=== PATIENT | female | born 1975 | race Caucasian/White ===

== ENCOUNTER 2017-10-23 19:57 | Emergency (ER) | payer BC ==
[~2017-10-23] VITALS: Ht 165.1 cm; Wt 113.4 kg
[~2017-10-23 19:57] MED LIST: ACETAMINOPHEN-1 EAC1 PO; ANTIVERT25 MG PO; APAP500 PO; BUSPIRONE HCL10 MG PO; CYMBALTA30 MG PO; CYMBALTA60 MG; CYMBALTA60 MG PO; ELIMITE60 GM TP; IBUPROFEN 200200 M1; IBUPROFEN 800800 M1 PO; PROZAC20 MG PO; ROBAXIN500 MG PO; VICOPROFEN 2001 EACH PO; XANAX 0.5 MG0.5 MG PO; ZOFRAN4 MG PO
[2017-10-23] MEDS ORDERED: WELLBUTRIN 100100 MG PO (20:09)
[2017-10-23] MEDS ORDERED: BUTALB-APAP-CA1 EACH PO (21:12)
[2017-10-23 21:46] VITALS: BP 144/79
== END 2017-10-23 21:42 | disposition home or self-care (01) ==
LOC: M.ERS 19:57
DX: R51 Headache (principal); F10.99 Alcohol use, unspecified with unspecified alcohol-induced disorder

== ENCOUNTER 2018-02-01 21:30 | Emergency (ER) | payer BC ==
[~2018-02-01] VITALS: Ht 165.1 cm; Wt 115.7 kg
[~2018-02-01 21:30] MED LIST changes: +BUTALB-APAP-CA1 EACH PO; +WELLBUTRIN 100100 MG PO
[2018-02-01] MEDS ORDERED: TOPAMAX 25 MG T25 M1 PO (21:56)
[2018-02-01 22:32] LABS: URINE BILIRUBIN NEGATIVE (Negative); URINE BLOOD 1+ (Negative); URINE CLARITY CLEAR; URINE COLOR YELLOW; URINE GLUCOSE-RANDOM NEGATIVE (Negative); URINE KETONES NEGATIVE (Negative); URINE LEUKOCYTES-REFLEX NEGATIVE (Negative); URINE NITRITE-REFLEX NEGATIVE (Negative); URINE PROTEIN NEGATIVE (Negative); URINE SPECIFIC GRAVITY 1.015 (1.005-1.030); URINE UROBILINOGEN 0.2 E.U./dl (0.2-1.0)
[2018-02-01 22:50] LABS: BACTERIA-REFLEX None Seen /HPF (None Seen); CASTS None Seen /LPF (None Seen); MUCUS None Seen strn/LPF (None Seen); SQUAMOUS 0-3 Few /LPF (0-3); URINE RBC 3-10 Few /HPF (0-2); URINE WBC-REFLEX None Seen /HPF (0-5)
[2018-02-01 22:51] LABS: AMORPHOUS PHOSPHATES Few /LPF (None Seen)
[2018-02-01 23:28] LABS: ABSOLUTE EOSINOPHILS 0.2 thou/uL (0.0-0.7); ABSOLUTE LYMPHOCYTES 1.8 thou/uL (0.8-5.3); ABSOLUTE MONOCYTES 0.6 thou/uL (0.0-1.2); BASOPHILS 0.5 %; EOSINOPHILS 3.1 %; HEMATOCRIT 34.7 % (37.0-47.0); HEMOGLOBIN 11.2 gm/dL (12.0-15.0); LYMPHOCYTES 23.9 %; MCH 26.9 pg (26.0-34.0); MCHC 32.3 g/dL (28.0-37.0); MCV 83.1 fL (80.0-100.0); MPV 9.3 fl. (7.2-11.1); NUCLEATED RBCS 0 /100WBC; PLATELET COUNT* 244 thou/uL (150-400); POLYS 64.5 %; RBC 4.18 mil/uL (4.20-5.00); RDW-CV 15.9 % (10.5-14.5); WBC 7.7 thou/uL (4.0-11.0)
[2018-02-01 23:40] LABS: CALCIUM 8.8 mg/dL (8.5-10.1); POTASSIUM 3.5 mmol/L (3.5-5.1)
[2018-02-01 23:45] LABS: ALBUMIN 3.6 g/dL (3.4-5.0); TOTAL BILIRUBIN 0.2 mg/dL (<0.1-1.0); TOTAL PROTEIN 6.7 g/dL (6.4-8.2)
[2018-02-01] MEDS ORDERED: FLAGYL500 MG PO (23:53)
[2018-02-02 00:18] VITALS: BP 150/102
== END 2018-02-02 00:21 | disposition home or self-care (01) ==
LOC: M.ERS 21:30
PROVIDERS: Nurse Practitioner Family
DX: N76.0 Acute vaginitis (principal); B96.89 Other specified bacterial agents as the cause of diseases classified elsewhere; R10.2 Pelvic and perineal pain

== ENCOUNTER 2019-11-02 20:09 | Emergency (ER) | payer BC ==
[~2019-11-02] VITALS: Ht 165.1 cm; Wt 120.2 kg
[~2019-11-02 20:09] MED LIST changes: +FLAGYL500 MG PO; +TOPAMAX 25 MG T25 M1 PO
[2019-11-02 20:54] LABS: INFLUENZA A ANTIGEN Negative (Negative); INFLUENZA B ANTIGEN Negative (Negative)
[2019-11-02] MEDS ORDERED: PROAIR HFA8.5 GM INH (21:34)
[2019-11-02] MEDS ORDERED: PREDNISONE50 MG PO (21:34)
[2019-11-02] MEDS ORDERED: TAMIFLU75 MG PO (21:34)
[2019-11-02] MEDS ORDERED: ALBUTEROL2.5 MG/31 INH (21:43)
[2019-11-02 21:58] VITALS: BP 155/89
--- NOTE | 2019-11-03 11:06 | EKG ---
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1975 Requested By: Khushi Velazquez Order Number: [id number] Reading MD: Ricky Ahuja Measurements Intervals [place] Rate: 104 P: 35 VT: 155 QRS: -53 QRSD: 93 T: 28 QT: 354 QTc: 466 Interpretive Statements Sinus tachycardia Left anterior fascicular block Borderline repolarization abnormality No previous ECG available for comparison Electronically Signed On 11-03-2019 11:06:13 [employer] by Ricky Ahuja [email or web address] <ELECTRONICALLY SIGNED> By: Ricky Ahuja MD, [facility] 11/03/19 1106 21 21 Ricky Ahuja MD, FACC /EPI
== END 2019-11-02 21:58 | disposition home or self-care (01) ==
LOC: M.ERS 20:09
PROVIDERS: Emergency Medicine
DX: J11.1 Influenza due to unidentified influenza virus with other respiratory manifestations (principal); Z98.51 Tubal ligation status

== ENCOUNTER 2020-09-04 00:08 | Emergency (ER) | payer BC ==
[~2020-09-04] VITALS: Ht 165.1 cm; Wt 122.5 kg
[~2020-09-04 00:08] MED LIST changes: +ALBUTEROL2.5 MG/31 INH; +PREDNISONE50 MG PO; +PROAIR HFA8.5 GM INH; +TAMIFLU75 MG PO
[2020-09-04 00:36] LABS: ABSOLUTE BASOPHILS 0.1 thou/uL (0.0-0.2); ABSOLUTE EOSINOPHILS 0.3 thou/uL (0.0-0.7); ABSOLUTE LYMPHOCYTES 2.3 thou/uL (0.8-5.3); ABSOLUTE MONOCYTES 0.4 thou/uL (0.0-1.2); ABSOLUTE NEUTROPHILS 4.2 thou/uL (1.6-8.1); BASOPHILS 0.8 %; EOSINOPHILS 3.6 %; HEMATOCRIT 38.2 % (37.0-47.0); HEMOGLOBIN 12.2 gm/dL (12.0-15.0); LYMPHOCYTES 31.6 %; MCV 81.2 fL (80.0-100.0); MONOCYTES 5.1 %; MPV 9.2 fl. (7.2-11.1); NUCLEATED RBCS 0 /100WBC; PLATELET COUNT* 264 thou/uL (150-400); POLYS 58.9 %; RDW-CV 15.3 % (10.5-14.5); WBC 7.2 thou/uL (4.0-11.0)
[2020-09-04 00:40] LABS: CALCIUM 8.7 mg/dL (8.5-10.1); CREATININE 0.7 mg/dL (0.6-1.3); POTASSIUM 3.8 mmol/L (3.5-5.1)
[2020-09-04 00:44] LABS: TOTAL BILIRUBIN 0.2 mg/dL (<0.1-1.0); TOTAL PROTEIN 7.9 g/dL (6.4-8.2)
[2020-09-04 00:49] LABS: URINE BILIRUBIN NEGATIVE (Negative); URINE BLOOD 1+ (Negative); URINE CLARITY CLEAR; URINE COLOR STRAW; URINE GLUCOSE-RANDOM NEGATIVE (Negative); URINE KETONES NEGATIVE (Negative); URINE LEUKOCYTES-REFLEX NEGATIVE (Negative); URINE NITRITE-REFLEX NEGATIVE (Negative); URINE PROTEIN NEGATIVE (Negative); URINE SPECIFIC GRAVITY <= 1.005 (1.005-1.030); URINE UROBILINOGEN 0.2 E.U./dl (0.2-1.0)
[2020-09-04 00:53] LABS: AMP/METHAMP Negative (Negative); BARBITURATES Negative (Negative); BENZODIAZEPINES Negative (Negative); COCAINE Negative (Negative); METHADONE Negative (Negative); OPIATES Negative (Negative); PCP Negative (Negative); THC Negative (Negative)
[2020-09-04 00:58] LABS: ALCOHOL 178 mg/dL (<10); SALICYLATE < 2.8 mg/dL (2.8-20.0)
[2020-09-04 01:01] LABS: ACETAMINOPHEN < 2 ug/mL (10-30)
[2020-09-04 01:21] LABS: CASTS None Seen /LPF (None Seen); SQUAMOUS >10 Many /LPF (0-3)
[2020-09-04 01:22] LABS: CRYSTALS None Seen /LPF (None Seen); URINE RBC 0-2 Rare /HPF (0-2); URINE WBC-REFLEX 0-5 Rare /HPF (0-5)
[2020-09-04] MEDS ORDERED: LEXAPRO5 MG PO (03:54)
[2020-09-04 04:02] VITALS: BP 159/88
== END 2020-09-04 04:08 | disposition home or self-care (01) ==
LOC: M.ERS 00:08
PROVIDERS: Emergency Medicine
DX: F32.9 Major depressive disorder, single episode, unspecified (principal); Z98.51 Tubal ligation status; Z98.891 History of uterine scar from previous surgery; Z79.899 Other long term (current) drug therapy

== ENCOUNTER 2021-05-15 17:43 | Emergency (ER) | payer OTHER ==
[~2021-05-15] VITALS: Ht 165.1 cm; Wt 104.3 kg
[~2021-05-15 17:43] MED LIST changes: +LEXAPRO5 MG PO
[2021-05-15] MEDS ORDERED: WELCHOL 625 MG625 M1 PO (18:01)
[2021-05-15 19:01] LABS: ABSOLUTE LYMPHOCYTES 0.7 thou/uL (0.8-5.3); ABSOLUTE MONOCYTES 0.3 thou/uL (0.0-1.2); ABSOLUTE NEUTROPHILS 3.4 thou/uL (1.6-8.1); BASOPHILS 1.1 %; EOSINOPHILS 0.8 %; HEMOGLOBIN 11.9 gm/dL (12.0-15.0); LYMPHOCYTES 15.7 %; MCH 24.8 pg (26.0-34.0); MCHC 32.1 g/dL (28.0-37.0); MCV 77.4 fL (80.0-100.0); MONOCYTES 5.7 %; MPV 9.9 fl. (7.2-11.1); NUCLEATED RBCS 0 /100WBC; PLATELET COUNT* 147 thou/uL (150-400); POLYS 76.7 %; RBC 4.78 mil/uL (4.20-5.00); RDW-CV 15.1 % (10.5-14.5); WBC 4.4 thou/uL (4.0-11.0)
[2021-05-15 19:10] LABS: CALCIUM 8.5 mg/dL (8.5-10.1); CREATININE 0.8 mg/dL (0.6-1.3); POTASSIUM 4.6 mmol/L (3.5-5.1)
[2021-05-15 19:23] LABS: ALBUMIN 3.6 g/dL (3.4-5.0); TOTAL BILIRUBIN 0.5 mg/dL (<0.1-1.0); TOTAL PROTEIN 7.7 g/dL (6.4-8.2)
[2021-05-15] MEDS ORDERED: FLEXERIL PO (20:50)
[2021-05-15] MEDS ORDERED: TESSALON PERLE100 MG PO (20:50)
[2021-05-15] MEDS ORDERED: ZOFRAN ODT4 MG PO (20:50)
[2021-05-15 21:17] VITALS: BP 114/80
--- NOTE | 2021-05-16 09:31 | EKG ---
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1975 Requested By: Dinorah Beverly Order Number: [id number] MD: Nabeel Cain Measurements Intervals [place] Rate: 108 P: 25 MS: 143 QRS: -65 QRSD: 88 T: 26 QT: 370 QTc: 496 Interpretive Statements Sinus tachycardia Left anterior fascicular block RSR' in V1 or V2, right VCD or RVH Borderline prolonged QT interval Compared to ECG 11/02/2019 20:22:01 Right ventricular hypertrophy now possible RSR' in V1 or V2 now present Electronically Signed On 05-16-2021 9:31:04 CDT by Nabeel Cain [email or web address] <ELECTRONICALLY SIGNED> By: Karine Cain MD, [facility] 05/16/2131 40 40 Karine Cain MD, [facility] /EPI
== END 2021-05-15 21:18 | disposition home or self-care (01) ==
LOC: M.ERS 17:43
PROVIDERS: Nurse Practitioner Family
DX: U07.1 COVID-19 (principal); J45.909 Unspecified asthma, uncomplicated; R74.8 Abnormal levels of other serum enzymes; E11.65 Type 2 diabetes mellitus with hyperglycemia; E66.9 Obesity, unspecified; Z98.890 Other specified postprocedural states; Z98.51 Tubal ligation status

== ENCOUNTER 2021-11-19 08:50 | Emergency (ER) | payer BC ==
[~2021-11-19] VITALS: Ht 165.1 cm; Wt 117.6 kg
[~2021-11-19 08:50] MED LIST changes: +FLEXERIL PO; +TESSALON PERLE100 MG PO; +WELCHOL 625 MG625 M1 PO; +ZOFRAN ODT4 MG PO
[2021-11-19] MEDS ORDERED: LEXAPRO20 MG PO (09:05)
[2021-11-19] MEDS ORDERED: FISH OIL 1,0001 EAC9 PO (09:05)
[2021-11-19] MEDS ORDERED: METFORMIN HCL500 MG PO (09:05)
[2021-11-19] MEDS ORDERED: IRON325 M1 PO (09:06)
[2021-11-19] MEDS ORDERED: RESTORIL15 M1 PO (09:06)
[2021-11-19 09:29] LABS: ABSOLUTE BASOPHILS 0.1 thou/uL (0.0-0.2); ABSOLUTE EOSINOPHILS 0.2 thou/uL (0.0-0.7); ABSOLUTE LYMPHOCYTES 1.5 thou/uL (0.8-5.3); ABSOLUTE MONOCYTES 0.5 thou/uL (0.0-1.2); ABSOLUTE NEUTROPHILS 5.5 thou/uL (1.6-8.1); BASOPHILS 0.7 %; EOSINOPHILS 2.6 %; HEMATOCRIT 37.8 % (37.0-47.0); HEMOGLOBIN 11.8 gm/dL (12.0-15.0); LYMPHOCYTES 19.2 %; MCH 23.7 pg (26.0-34.0); MCHC 31.2 g/dL (28.0-37.0); MCV 76.1 fL (80.0-100.0); MONOCYTES 6.3 %; MPV 9.8 fl. (7.2-11.1); NUCLEATED RBCS 0 /100WBC; PLATELET COUNT* 238 thou/uL (150-400); POLYS 71.2 %; RBC 4.96 mil/uL (4.20-5.00); RDW-CV 20.6 % (10.5-14.5); WBC 7.7 thou/uL (4.0-11.0)
[2021-11-19 09:31] LABS: URINE BILIRUBIN NEGATIVE (Negative); URINE BLOOD 3+ (Negative); URINE CLARITY CLEAR; URINE COLOR YELLOW; URINE GLUCOSE-RANDOM NEGATIVE (Negative); URINE KETONES NEGATIVE (Negative); URINE LEUKOCYTES NEGATIVE (Negative); URINE NITRITE NEGATIVE (Negative); URINE PROTEIN NEGATIVE (Negative); URINE SPECIFIC GRAVITY >= 1.030 (1.005-1.030); URINE UROBILINOGEN 0.2 E.U./dl (0.2-1.0)
[2021-11-19 09:46] LABS: MUCUS >6 Heavy strn/LPF (None Seen); SQUAMOUS >10 Many /LPF (0-3)
[2021-11-19 09:47] LABS: CASTS None Seen /LPF (None Seen); CRYSTALS None Seen /LPF (None Seen)
[2021-11-19 09:48] LABS: BACTERIA >30 Many /HPF (None Seen); URINE WBC 0-5 Rare /HPF (0-5)
[2021-11-19 09:53] LABS: CALCIUM 8.7 mg/dL (8.5-10.1); CREATININE 0.9 mg/dL (0.6-1.3); POTASSIUM 4.1 mmol/L (3.5-5.1)
[2021-11-19 09:58] LABS: ALBUMIN 4.2 g/dL (3.4-5.0); TOTAL BILIRUBIN 0.4 mg/dL (<0.1-1.0); TOTAL PROTEIN 7.5 g/dL (6.4-8.2)
[2021-11-19] MEDS ORDERED: ZOFRAN ODT4 MG PO (11:20)
[2021-11-19] MEDS ORDERED: NORCO5 PO (11:20)
[2021-11-19 11:35] VITALS: BP 124/59
== END 2021-11-19 11:35 | disposition home or self-care (01) ==
LOC: M.ERS 08:50
PROVIDERS: Emergency Medicine
DX: N20.0 Calculus of kidney (principal); F32.9 Major depressive disorder, single episode, unspecified; J45.909 Unspecified asthma, uncomplicated; E66.9 Obesity, unspecified; Z98.51 Tubal ligation status; Z90.49 Acquired absence of other specified parts of digestive tract; Z98.890 Other specified postprocedural states; Z79.899 Other long term (current) drug therapy; Z68.41 Body mass index [BMI] 40.0-44.9, adult